=== PATIENT | male | born 1940 | race Caucasian/White ===

== ENCOUNTER 2017-04-17 09:56 | Inpatient (IN) | payer OTHER, MEDICAID ==
[~2017-04-17] VITALS: Ht 160 cm; Wt 54.4 kg
[2017-04-17 10:38] LABS: BASOPHIL % 0.3 % (0-2); PLATELET COUNT 177 x10^3mcL (130-400)
[2017-04-17 10:40] LABS: RED CELL DISTRIBUTION WIDTH 15.6 % (11.5-14.5)
[2017-04-17 10:50] LABS: ALKALINE PHOSPHATASE 94 U/L (46-116); ALT/SGPT 18 U/L (16-63); AST/SGOT 10 U/L (15-37); BILIRUBIN TOTAL 0.62 mg/dL (0.20-1.00); CALCIUM 8.8 mg/dL (8.5-10.1); CARBON DIOXIDE 27.5 mmol/L (21-32); CHLORIDE SERUM 125 mmol/L (98-107); CREATININE SERUM 1.8 mg/dL (0.7-1.3); GLUCOSE SERUM 239 mg/dL (74-106)
[2017-04-17 10:52] LABS: ALBUMIN 3.1 g/dL (3.4-5.0); SODIUM SERUM 162 mmol/L (136-145)
[2017-04-17] MEDS ORDERED: ASPIR LOW81 MG PO (11:16)
[2017-04-17] MEDS ORDERED: NOR5 PO (11:16)
[2017-04-17] MEDS ORDERED: BENAZEPRIL HYDRO5 M1 PO (11:17)
[2017-04-17] MEDS ORDERED: DEXILANT60 M1 PO (11:17)
[2017-04-17] MEDS ORDERED: ARICEPT10 MG PO (11:17)
[2017-04-17] MEDS ORDERED: METFORMIN HCL500 MG PO (11:18)
[2017-04-17] MEDS ORDERED: VESICARE10 M1 PO (11:18)
[2017-04-17] MEDS ORDERED: GEMFIBROZIL600 MG PO (11:18)
[2017-04-17] MEDS ORDERED: NAMENDA10 M2 PO (11:18)
[2017-04-17] MEDS ORDERED: EPZICOM1 TAB (11:19)
[2017-04-17 11:36] LABS: TOTAL PROTEIN, SERUM 7.6 g/dL (6.4-8.2)
[2017-04-17 11:37] LABS: UA SPECIFIC GRAVITY 1.025 (1.005-1.035); microscopic required? YES; urine erythrocyte 3+ (NEGATIVE)
[2017-04-17 12:00] LABS: FREE T4 1.34 ng/dL (0.76-1.46)
[2017-04-17 12:05] LABS: CHOLESTEROL/HDL RATIO 4.2
[2017-04-17 12:29] LABS: T3 TOTAL 0.87 ng/mL
[2017-04-17 12:43] VITALS: BP 140/62
[2017-04-17 13:14] VITALS: BP 140/62
[2017-04-17 17:12] VITALS: BP 145/64
[2017-04-17 18:30] LABS: CALCIUM 8.4 mg/dL (8.5-10.1); CARBON DIOXIDE 25.5 mmol/L (21-32); CHLORIDE SERUM 130 mmol/L (98-107); CREATININE SERUM 1.2 mg/dL (0.7-1.3); GLUCOSE SERUM 105 mg/dL (74-106)
[2017-04-17 18:34] LABS: SODIUM SERUM 164 mmol/L (136-145)
[2017-04-17 20:48] VITALS: BP 145/65
[2017-04-18 01:48] LABS: CALCIUM 8.3 mg/dL (8.5-10.1); CARBON DIOXIDE 28.9 mmol/L (21-32); CHLORIDE SERUM 129 mmol/L (98-107); CREATININE SERUM 1.2 mg/dL (0.7-1.3); GLUCOSE SERUM 140 mg/dL (74-106); POTASSIUM SERUM 3.8 mmol/L (3.5-5.1)
[2017-04-18 01:51] LABS: SODIUM SERUM 162 mmol/L (136-145)
[2017-04-18 05:29] VITALS: BP 134/59
[2017-04-18 08:47] LABS: CALCIUM 8.2 mg/dL (8.5-10.1); CARBON DIOXIDE 28.2 mmol/L (21-32); CHLORIDE SERUM 128 mmol/L (98-107); CREATININE SERUM 1.2 mg/dL (0.7-1.3); GLUCOSE SERUM 99 mg/dL (74-106); POTASSIUM SERUM 3.5 mmol/L (3.5-5.1)
[2017-04-18 08:55] LABS: SODIUM SERUM 162 mmol/L (136-145)
[2017-04-18 09:05] VITALS: BP 115/59
[2017-04-18 13:29] VITALS: BP 124/54
[2017-04-18 16:54] VITALS: BP 135/58
[2017-04-18 19:55] VITALS: BP 149/57
[2017-04-18 20:47] VITALS: BP 146/59
[2017-04-19 05:53] VITALS: BP 115/55
[2017-04-19 07:09] LABS: BASOPHIL % 0.3 % (0-2); PLATELET COUNT 147 x10^3mcL (130-400)
[2017-04-19 07:23] LABS: CALCIUM 8.6 mg/dL (8.5-10.1); CARBON DIOXIDE 27.7 mmol/L (21-32); CHLORIDE SERUM 121 mmol/L (98-107); CREATININE SERUM 0.9 mg/dL (0.7-1.3); GLUCOSE SERUM 95 mg/dL (74-106); MAGNESIUM 2.2 mg/dL (1.8-2.4); PHOSPHOROUS 3.3 mg/dL (2.5-4.9); POTASSIUM SERUM 3.4 mmol/L (3.5-5.1); SODIUM SERUM 155 mmol/L (136-145)
[2017-04-19 07:59] LABS: RED CELL DISTRIBUTION WIDTH 14.7 % (11.5-14.5)
[2017-04-19 09:00] VITALS: BP 113/49
[2017-04-19 14:06] VITALS: BP 139/59
[2017-04-19 17:52] VITALS: BP 137/55
[2017-04-19] MEDS ORDERED: LAC PO (18:56)
[2017-04-19] MEDS ORDERED: NITROFURANTOIN100 MG PO (18:58)
[2017-04-19 19:25] VITALS: BP 137/55
== END 2017-04-19 20:22 | disposition home or self-care (01) | DRG 56 ==
LOC: ED 09:56 → DU 11:01
PROVIDERS: Emergency Medicine; Family Medicine; ADMIT Family Medicine
DX: G30.9 Alzheimer's disease, unspecified (principal); G93.41 Metabolic encephalopathy; N17.0 Acute kidney failure with tubular necrosis; N39.0 Urinary tract infection, site not specified; E87.0 Hyperosmolality and hypernatremia; E44.0 Moderate protein-calorie malnutrition; I10 Essential (primary) hypertension; F02.80 Dementia in other diseases classified elsewhere, unspecified severity, without behavioral disturbance, psychotic disturbance, mood disturbance, and anxiety; E87.6 Hypokalemia; E86.0 Dehydration; E11.9 Type 2 diabetes mellitus without complications; N40.0 Benign prostatic hyperplasia without lower urinary tract symptoms; K21.9 Gastro-esophageal reflux disease without esophagitis; M19.90 Unspecified osteoarthritis, unspecified site; E78.2 Mixed hyperlipidemia; E83.41 Hypermagnesemia; Z68.21 Body mass index [BMI] 21.0-21.9, adult; Z79.84 Long term (current) use of oral hypoglycemic drugs
CPT/HCPCS: 82962; 83880; 84439; 92610-GN; 97110-GP; 97116-GP; 97530-GP; J0696; J7030; Q0092